=== PATIENT | male | born 1965 | race African-American/Black ===

== ENCOUNTER 2023-08-11 01:02 | Inpatient (IN) | payer OTHER ==
[~2023-08-11] VITALS: Ht 180.3 cm; Wt 149.7 kg
[~2023-08-11 01:02] MED LIST: AMLO5TAB4 PO; Aspirin PO; Metoprolol Tartrate PO
[2023-08-11 01:46] LABS: EOSINOPHILS % 2.2 % (0.0-5.0); HEMATOCRIT. 23.9 % (42.0-52.0); HEMOGLOBIN. 7.9 g/dL (14.0-18.0); LYMPHOCYTES % 28.2 % (20.0-50.0); MEAN CORPUSCULAR HEMOGLOBIN 29.1 pg (28.0-32.0); MEAN CORPUSCULAR HGB CONC 32.9 g/dL (31.0-37.0); MEAN CORPUSCULAR VOLUME 88.5 fL (80.0-94.0); MEAN PLATELET VOLUME 7.8 fl (7.4-10.4); MONOCYTES % 8.7 % (2.0-8.0); NEUTROPHILS % 59.9 % (40.0-76.0); PLATELET 199 x1000/uL (130-400); RED CELL DISTRIBUTION WIDTH 15.4 % (11.6-14.6)
[2023-08-11 01:51] LABS: CHLORIDE 107 mEq/L (98-107); SODIUM 139 mEq/L (136-145)
[2023-08-11 01:52] LABS: CALCIUM 8.9 mg/dL (8.7-10.4); CARBON DIOXIDE 28 mEq/L (21-32)
[2023-08-11 01:57] LABS: GLUCOSE 148 mg/dL (70-105); TROPONIN I HIGH SENSITIVITY 8 ng/L (3.0-53); UREA NITROGEN BLOOD 17 mg/dL (9-23)
[2023-08-11 02:16] LABS: PARTIAL THROMBOPLASTIN TIME 24.5 sec (23.4-31.0)
[2023-08-11] MEDS: IOHEXOL-300 100 ML BOTTLE ONE (06:45)
[2023-08-11 15:09] VITALS: BP 141/58; PULSE 86; RESP 16; TEMP 98.7
[2023-08-11 15:25] VITALS: BP 141/58; PULSE 86; RESP 16; TEMP 98.7
[2023-08-11] MEDS ORDERED: AMLO5TAB88 PO (15:35)
[2023-08-11] MEDS ORDERED: ONDANSETRON HCL 4MG/2ML INJ IV PRN (15:45)
[2023-08-11] MEDS ORDERED: ACETAMINOPHEN 325MG TABLET PO PRN (15:45)
[2023-08-11 18:45] LABS: HEMATOCRIT 24.6 % (42.0-52.0); HEMOGLOBIN 8.1 g/dL (14.0-18.0)
[2023-08-11 19:11] LABS: HEPATITIS B SURFACE ANTIGEN NEGATIVE (Negative)
[2023-08-11 19:32] LABS: HEPATITIS C AB NON REACTIVE (Neg) (Negative)
[2023-08-11 20:00] VITALS: BP 141/70; PULSE 84; RESP 17; TEMP 98.6
[2023-08-11] MEDS: PANTOPRAZOLE SODIUM 40 MG/VIAL IV SCH (20:40)
[2023-08-11 23:31] VITALS: BP 155/77; PULSE 87; RESP 16; TEMP 98.7
[2023-08-11 23:33] VITALS: BP 155/77; PULSE 87; RESP 16; TEMP 98.7
[2023-08-12 00:17] LABS: CLARITY URINE CLEAR (CLEAR); COLOR URINE YELLOW (YELLOW); GLUCOSE URINE NEGATIVE (NEGATIVE); KETONES URINE NEGATIVE (NEGATIVE); LEUKOCYTE ESTERASE URINE NEGATIVE (NEGATIVE); NITRITE URINE NEGATIVE (NEGATIVE); OCCULT BLOOD URINE NEGATIVE (NEGATIVE); PH URINE 6.5 (4.5-8.0); PROTEIN URINE NEGATIVE (NEGATIVE); SPECIFIC GRAVITY URINE 1.024 (1.005-1.030); UROBILINOGEN URINE 0.2 E.U./dL (0.2-1.0)
[2023-08-12 03:15] VITALS: BP 156/74; PULSE 77; RESP 18; TEMP 98.7
[2023-08-12 06:40] LABS: CHLORIDE 108 mEq/L (98-107); SODIUM 141 mEq/L (136-145)
[2023-08-12 06:41] LABS: CALCIUM 8.4 mg/dL (8.7-10.4); CARBON DIOXIDE 28 mEq/L (21-32); EOSINOPHILS % 3.8 % (0.0-5.0); HEMATOCRIT. 25.6 % (42.0-52.0); HEMOGLOBIN. 8.6 g/dL (14.0-18.0); LYMPHOCYTES % 35.1 % (20.0-50.0); MEAN CORPUSCULAR HEMOGLOBIN 29.9 pg (28.0-32.0); MEAN CORPUSCULAR HGB CONC 33.4 g/dL (31.0-37.0); MEAN CORPUSCULAR VOLUME 89.5 fL (80.0-94.0); MONOCYTES % 9.8 % (2.0-8.0); NEUTROPHILS % 50.3 % (40.0-76.0); PLATELET 179 x1000/uL (130-400); RED BLOOD CELL COUNT 2.86 mill/uL (4.7-6.1); RED CELL DISTRIBUTION WIDTH 15.1 % (11.6-14.6); WHITE BLOOD COUNT 6.9 x1000/uL (4.5-11.0)
[2023-08-12 06:46] LABS: CREATININE 0.8 mg/dL (0.6-1.3); GLUCOSE 111 mg/dL (70-105); UREA NITROGEN BLOOD 6 mg/dL (9-23)
[2023-08-12 08:00] VITALS: BP 115/49; PULSE 80; RESP 14; TEMP 97.7
[2023-08-12] MEDS: AMLODIPINE 10MG TABLET PO SCH (08:48)
[2023-08-12] MEDS ORDERED: IPRATROPIUM/ALBUTEROL 0.5-3(2.5)MG/3ML NEB HHN PRN (11:15)
[2023-08-12] MEDS ORDERED: CLONIDINE 0.1MG TABLET PO PRN (11:15)
[2023-08-12] MEDS ORDERED: DOCUSATE SODIUM 100MG CAPSULE PO PRN (11:15)
[2023-08-12 12:00] VITALS: BP 131/74; PULSE 76; RESP 12; TEMP 98.7
[2023-08-12 15:27] LABS: FERRITIN 67 ng/mL (22-322)
[2023-08-12 15:28] LABS: FOLIC ACID (FOLATE) SERUM > 20.00 ng/mL (>5.38); VITAMIN B12 SERUM 779 pg/mL (211-911)
[2023-08-12 15:30] LABS: IRON 46 ug/dL (65-175)
[2023-08-12 15:31] LABS: TROPONIN I HIGH SENSITIVITY 5 ng/L (3.0-53)
[2023-08-12 15:33] LABS: CREATINE KINASE 306 IU/L (46-171); TOTAL IRON BINDING CAPACITY 254 ug/dl (250-425)
[2023-08-12 16:00] VITALS: BP 121/57; PULSE 80; RESP 17; TEMP 98.3
[2023-08-12 20:00] VITALS: BP 127/54; PULSE 70; RESP 16; TEMP 98.9
[2023-08-12 22:00] VITALS: BP 127/54; PULSE 70; TEMP 98.9; O2SAT 100
== END 2023-08-12 23:48 | disposition short-term general hospital (02) | DRG 378 ==
LOC: ER 01:02 → EDBEDREQ 03:13 → 5WST 09:07 → 3WST 15:04
PROVIDERS: ADMIT Internal Medicine; ATTEND Internal Medicine
PROC: 30233N1 Transfusion of Nonautologous Red Blood Cells into Peripheral Vein, Percutaneous Approach (ICD-10-PCS; principal; 2023-08-11)
DX: K57.31 Diverticulosis of large intestine without perforation or abscess with bleeding (principal); Z68.42 Body mass index [BMI] 45.0-49.9, adult; D64.9 Anemia, unspecified; K42.9 Umbilical hernia without obstruction or gangrene; K76.0 Fatty (change of) liver, not elsewhere classified; I10 Essential (primary) hypertension; M17.0 Bilateral primary osteoarthritis of knee; E66.9 Obesity, unspecified; N28.1 Cyst of kidney, acquired; R73.9 Hyperglycemia, unspecified
CPT/HCPCS: 36415; 71046; 74177; 80048; 81003; 82270; 82550; 82553; 82607; 82728; 82746; 83036; 83540; 83550; 84484; 85014; 85018; 85025; 86705; 86850; 86900; 86920; 87340; 93005; 99291; C9113; P9016; Q9967